=== PATIENT | male | born 1995 ===

== ENCOUNTER 2016-12-19 14:40 | Emergency (ER) | payer MEDICAID, OTHER ==
[2016-12-19 14:53] VITALS: TEMP 97.7
[2016-12-19] MEDS ORDERED: Lidocaine 2% Inj (20ml) INFIL ONE (15:23)
[2016-12-19] MEDS ORDERED: Bacitracin 500 Units/gm Oint Foilpak UD ONE (15:55)
[2016-12-19] MEDS ORDERED: Bacitracin Ointment 30 GM TUBE TOP STA (15:59)
[2016-12-19] MEDS ORDERED: Tmp-Smz 800 mg-160 mg DS Tab PO STA (16:01)
[2016-12-19] MEDS ORDERED: Naproxen 550 mg Tab PO STA (16:01)
--- NOTE | 2016-12-19 16:01 | C.PDOC ---
History Of Present Illness Pt c/o pain/drainage at lateral aspect of right great toe. Time Seen by Provider: 12/19/16 15:04 Chief Complaint (Nursing): Lower Extremity Problem/Injury History Per: Patient Onset/Duration Of Symptoms: Days (1) Current Symptoms Are (Timing): Still Present Severity: Moderate Additional History Per: Prior Records - Ankle/Foot Feet: 1 - pain Past Medical History Reviewed: Historical Data, Nursing Documentation, Vital Signs Vital Signs: Last Vital Signs Temp 97.7 F 12/19/16 14:50 Pulse 86 12/19/16 14:50 Resp 18 12/19/16 14:50 BP 107/71 12/19/16 14:50 Pulse Ox 100 12/19/16 16:01 - Medical History PMH: Asthma (NO MEDS) Family History: States: Unknown Family Hx - Social History Hx Tobacco Use: No Hx Alcohol Use: No Hx Substance Use: No - Immunization History Hx Tetanus Toxoid Vaccination: No Hx Influenza Vaccination: No Hx Pneumococcal Vaccination: No Review Of Systems Except As Marked, All Systems Reviewed And Found Negative. Constitutional: Negative for: Fever, Weakness Cardiovascular: Negative for: Chest Pain Respiratory: Negative for: Shortness of Breath Gastrointestinal: Negative for: Vomiting, Abdominal Pain Musculoskeletal: Negative for: Neck Pain, Leg Pain Neurological: Negative for: Weakness, Numbness, Seizures, Altered Mental Status Physical Exam - Physical Exam Appears: Non-toxic, No Acute Distress Skin: Normal Color, Warm, Dry, No Rash Head: Atraumatic, Normacephalic Eye(s): bilateral: Normal Inspection, PERRL, EOMI Neck: Normal ROM, Supple Extremity: Normal ROM, No Calf Tenderness, Capillary Refill (wnl), Other ( ingrown nail of lateral side of right great toe) Pulses: Right Dorsalis Pedis: Normal Neurological/Psych: Oriented x3, Normal Motor, Normal Sensation ED Course And Treatment O2 Sat by Pulse Oximetry: 100 Pulse Ox Interpretation: Normal Progress Note: Ingrown part of toe nail was cut with scissors after a digital block using 2% lidocane. Toe was cleaned with Betadyne prior to procedure. Pt tolerated procedure well. No complications. Reassessment Condition: Improved Disposition Counseled Patient/Family Regarding: Diagnosis, Need For Followup, Rx Given - Disposition Referrals: [facility] [Outside] [facility] [Outside] Disposition: HOME/ ROUTINE Disposition Time: 16:07 Condition: IMPROVED Additional Instructions: Follow up with a Nps (foot doctor) for further evaluation and treatment. Return to the ER if you develop fever, worsening of symptoms or if you have any other concerns. Prescriptions: Sulfamethoxazole/Trimethoprim [Bactrim DS 800 mg-160 mg] 1 tab PO BID #10 tab Instructions: Ingrown Nail (ED) - Clinical Impression Clinical Impression: Ingrown nail of great toe of right foot
[2016-12-19 16:04] VITALS: BP 101/67; PULSE 59; RESP 20
[2016-12-19] MEDS ORDERED: Tmp-Smz 800 mg-160 mg DS Tab ONE (16:04)
[2016-12-19] MEDS ORDERED: Naproxen 550 mg Tab PO ONE (16:05)
[2016-12-19 16:06] VITALS: O2SAT 100
== END 2016-12-19 16:14 | disposition home or self-care (01) ==
LOC: C.ER 14:40
DX: L60.0 Ingrowing nail (principal)